=== PATIENT | male | born 1965 | race Caucasian/White ===

== ENCOUNTER → 2020-12-30 | Outpatient (CLI) | payer MEDICARE, OTHER ==
[~2020-12-30] MED LIST: AMARYL 2MG TABLE2 MG PO; ASPIRIN CHEWABL81 MG PO; CRESTOR20 MG PO; DEPAKOTE500 MG PO; DEXILANT60 MG PO; DIFLUCAN200 MG PO; DIGOX125 MCG PO; DRISDOL50000 UNIT PO; GLUCOPHAGE1000 MG PO; GLUCOPHAGE500 MG PO; IMODIUM CAP 2 MG2 MG PO; LEVAQUIN500 MG PO; LOPRESSOR 25 MG25 MG PO; MEGACE 400400 MG/10 PO; NITROSTAT0.4 MG SL; REGLAN10 MG PO; REMERON30 MG PO; SEROQUEL50 MG PO; VANCOCIN 125 M125 MG PO; WELLBUTRIN SR150 MG PO; XYZAL5 MG PO
== END ==
LOC: HEART CORB 12-23 10:00
DX: I48.92 Unspecified atrial flutter (principal); I38 Endocarditis, valve unspecified; I27.20 Pulmonary hypertension, unspecified; I34.0 Nonrheumatic mitral (valve) insufficiency; I37.1 Nonrheumatic pulmonary valve insufficiency; I51.7 Cardiomegaly
CPT/HCPCS: 93306

== ENCOUNTER → 2021-07-16 | Outpatient (CLI) | payer MEDICARE, OTHER | LOC: HEART CORB 10:20 | DX: R07.2 Precordial pain (principal); I42.0 Dilated cardiomyopathy | CPT/HCPCS: 78452; A9502; J2785 ==

== ENCOUNTER → 2021-08-15 | Outpatient (CLI) | payer MEDICARE, OTHER | LOC: KOH-I 10:11 | DX: J32.9 Chronic sinusitis, unspecified (principal) | CPT/HCPCS: 70486 ==

== ENCOUNTER → 2022-01-09 | Outpatient (CLI) | payer MEDICARE, OTHER | LOC: EXRD 10:53 → EDSTATUS 16:11 | DX: I73.9 Peripheral vascular disease, unspecified (principal) | CPT/HCPCS: 93925 ==

== ENCOUNTER → 2022-03-24 | Outpatient (CLI) | payer MEDICARE, OTHER ==
[2022-03-24 12:49] LABS: HEMOGLOBIN 12.7 gm/dl (14.0-17.5); RED BLOOD COUNT 4.55 M/UL (4.20-5.50); WHITE BLOOD COUNT 6.4 K/UL (4.5-11.0)
[2022-03-25 08:21] LABS: IMMUNOGLOBULIN A, QN, SERUM 96 mg/dL (90-386); IMMUNOGLOBULIN G, QN, SERUM 434 mg/dL (603-1613); IMMUNOGLOBULIN M, QN, SERUM 20 mg/dL (20-172)
== END ==
LOC: LAB 11:08
PROVIDERS: Internal Medicine Hematology & Oncology
DX: D89.9 Disorder involving the immune mechanism, unspecified (principal)
CPT/HCPCS: 80053; 82784; 85025; 85652; 86140